=== PATIENT | female | born 1950 | race African-American/Black ===

== ENCOUNTER 2020-05-22 10:55 | Emergency (ER) | payer MEDICARE, OTHER ==
[~2020-05-22] VITALS: Ht 162.6 cm; Wt 84.4 kg
--- NOTE | 2020-05-22 10:52 | NUR ---
ED Nurse Note: Pt was brought in by [id number] from home d/t R chronic leg pain that has been going on for 3 days. pt is AOx4, calm and cooperative to care (+) facial grimace, per EMS pt has been dx with sciatica. Pt's VSS, om RA, afebrile on triage. Placed on bed, ERMD at bedside.
[2020-05-22 10:57] VITALS: BP 135/83
[2020-05-22] MEDS ORDERED: Methocarbamol 500mg tab ORAL ONE ×2 (11:00→11:02)
[2020-05-22] MEDS ORDERED: Ketorolac 30mg Inj IV ONE (11:00)
[2020-05-22] MEDS ORDERED: Ketorolac 30mg Inj ONE (11:01)
--- NOTE | 2020-05-22 11:17 | NUR ---
ED Nurse Note: pt was taken to ct
--- NOTE | 2020-05-22 11:27 | Emergency Room Report ---
History of Present Illness General Chief Complaint: General Complaint Source: Patient, Medical Record, EMS Present Illness HPI Patient is a 69-year-old female past medical history of sciatica who presents to the ER complaining of right lower back pain rating down her right leg. Patient denies any trauma. She states that the pain started again 3 days ago. Patient states that earlier in the year she had similar pain and was undergoing therapy but stopped due to the pandemic. Patient denies any trauma. Denies any fever. She denies any focal weakness. She denies any abdominal pain. She denies any difficulty walking. She denies any changes to her bowel or bladder habits. Patient states that she tried to take some Tylenol with mild relief. Patient was brought in from home by EMS. 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 Patient History Reviewed Nursing Documentation: PMH: Agreed; PSxH: Agreed Nursing Documentation-PMH Hx Hypertension: Yes Review of Systems All Other Systems: negative except mentioned in HPI Physical Exam Vital Signs Date Time Temp Pulse Resp B/P (MAP) Pulse Ox O2 Delivery O2 Flow Rate FiO2 05/22/20 10:45 97.3 87 18 135/83 (100) 96 Room Air Sp02 EP Interpretation: reviewed, normal General Appearance: no apparent distress, alert, GCS 15, non-toxic Head: normocephalic, atraumatic Eyes: bilateral eye normal inspection, bilateral eye PERRL ENT: hearing grossly normal, normal pharynx, no angioedema, normal voice Neck: full range of motion, supple/symm/no masses Respiratory: chest non-tender, lungs clear, normal breath sounds, speaking full sentences Cardiovascular #1: regular rate, rhythm, no edema Gastrointestinal: normal bowel sounds, non tender, soft, non-distended, no guarding, no rebound Rectal: deferred, other - No saddle anesthesia able to squeeze 5 cheeks Musculoskeletal: other - Right lower back pain with positive straight leg raise at approximately 30 degrees Neurologic: die cast engineer III-XII nml as tested, oriented x3 Psychiatric: no suicidal/homicidal ideation Skin: no rash Lymphatic: no adenopathy Medical Decision Making Diagnostic Impression: Primary Impression: Sciatica of right side ER Course I suspect the back pain that the patient is presenting with is non-emergent in etiology. Regarding the history, the patient denies gradual onset, trauma, fevers, night sweats, history of malignancy, pain worse at night, IVDU or refractory pain. Given these pertinent negatives in the history an emergent cause of the back pain is less likely. Also doubt cardiovascular cause of back pain such as aortic dissection or ruptured abdominal aortic aneurysm given patient with equal pulses in all 4 extremities with no diastolic murmur, or pulsatile abdominal mass. Epidural abscess considered unlikely given no fever or history of IVDU. The patient does not have history of malignancy so doubt metastasis to bone. Also doubt caudaequina syndrome since patient with no history of urinary/fecal incontinence or focal weakness or change in sensation. The patient was counseled that, though unlikely, the possibility of an emergent cause of back pain may still be present and that the patient should return immediately if symptoms persists or worsen. I believe the patient is stable for discharge to follow-up with their PMD for further workup and possible MRI. Laboratory Tests Test 05/22/20 12:10 Urine Color Pale yellow Urine Appearance Clear Urine pH 7 (4.5-8.0) Urine Specific [place] 1.015 (1.005-1.035) Urine Protein Negative (NEGATIVE) Urine Glucose (UA) Negative (NEGATIVE) Urine Ketones Negative (NEGATIVE) Urine Blood 2+ (NEGATIVE) H Urine Nitrite Negative (NEGATIVE) Urine Bilirubin Negative (NEGATIVE) Urine Urobilinogen Normal MG/DL (0.0-1.0) Urine Leukocyte Esterase Negative (NEGATIVE) Urine RBC 2-4 /HPF (0 - 2) H Urine WBC 0-2 /HPF (0 - 2) Urine Squamous Epithelial Cells Moderate /LPF (NONE/OCC) H Urine Amorphous Sediment Moderate /LPF (NONE) H Urine Bacteria Few /HPF (NONE) Last Vital Signs Date Time Temp Pulse Resp B/P (MAP) Pulse Ox O2 Delivery O2 Flow Rate FiO2 05/22/20 10:57 97.3 18 135/83 96 Room Air 05/22/20 10:57 87 Disposition: HOME, SELF-CARE Condition: Stable Scripts Methocarbamol* (ROBAXIN-750*) 750 Mg Tablet 500 MG PO TID, #21 TAB 0 Refills Prov: Marcelle Vazquez M.D. 05/22/20 Naproxen* (NAPROSYN*) 250 Mg Tablet 250 MG ORAL TID PRN for For Pain, #20 TAB 0 Refills Prov: Marcelle Vazquez M.D. 05/22/20 Additional Instructions: The patient was provided with discharge instructions, notified to follow-up with a primary care doctor and or specialist in the next 24-48 hours, and to return to the ED if they have worsening of their symptoms. Please note that this report is being documented using [employer] technology. This can lead to erroneous entry secondary to incorrect interpretation by the dictating instrument. Marcelle Vazquez M.D. May 22, 2020 11:27
--- NOTE | 2020-05-22 12:05 | Diagnostic Imaging Report ---
Indications: Status post fall, right-sided hip pain, chronic leg pain Technique: Spiral acquisitions obtained through the lumbar spine. Multiplanar reconstructions were generated. No IV contrast utilized. Total dose length product 515 mGycm. CTDIvol(s) 13 mGy. Dose reduction achieved using automated exposure control Comparison: none Findings: There is very slight anterior offset of L3 on L4 and L4 on L5. Bony alignment is otherwise normal. Vertebral body heights are preserved. The disc spaces are preserved. No acute fracture. No dislocation. There is unusual mixed osteolytic and osteosclerotic appearance of the entire L4 segment, with slight expansion of the vertebral body margins. There is bone on bone apposition of the L3-4 and L4-5 spinous processes. There is degenerative facet arthrosis at nearly every level. There are also multilevel degenerative proliferative changes. There is bilateral sacroiliac joint arthrosis. At C2-3, there is mild circumferential annular bulge which does not significant compromise spinal canal or neural foramina. At C3-4, there is circumferential annular bulge which results in mild narrowing of the spinal canal. The neural foramina are preserved. At C4-5, there is circumferential annular bulge as well as left paracentral and intraforaminal posterior broad-based disc protrusion. This may compromise left lateral recess and to a slight extent the left neural foramen. At L5-S1, there is circumferential annular bulge as well as broad-based posterior disc protrusion. This results in borderline narrowing of the spinal canal. There is mild narrowing of the bilateral neural foramina at this level. At the remaining disc levels, no significant disc bulge or protrusion or spinal stenosis. The included extra spinal soft tissues are remarkable for the presence of colonic diverticulosis. Impression: No acute bony trauma Degenerative changes, as described above Incidental finding of colonic diverticulosis The CT scanner at [facility] is accredited by the [employer] and the scans are performed using protocols designed to limit radiation exposure to as low as reasonably achievable to attain images of sufficient resolution adequate for diagnostic evaluation.
--- NOTE | 2020-05-22 12:23 | NUR ---
ED Nurse Note: assisted pt to urinate throught bedpan; obtained sample, sent to lab.
[2020-05-22 12:33] LABS: APPEARANCE,URINE CLEAR; BILIRUBIN, URINE NEGATIVE (NEGATIVE); COLOR,URINE PALE YELLOW; GLUCOSE, URINE (UA) NEGATIVE (NEGATIVE); KETONES,URINE NEGATIVE (NEGATIVE); LEUKOCYTE ESTERASE ,URINE NEGATIVE (NEGATIVE); NITRITE,URINE NEGATIVE (NEGATIVE); PH,URINE 7 (4.5-8.0); PROTEIN,URINE NEGATIVE (NEGATIVE); UROBILINOGEN,URINE NORMAL MG/DL (0.0-1.0)
[2020-05-22] MEDS ORDERED: ROBAXIN-750750 MG PO (13:16)
[2020-05-22] MEDS ORDERED: NAPROXEN250 MG ORAL (13:16)
[2020-05-22 14:02] VITALS: BP 140/86
--- NOTE | 2020-05-22 14:02 | NUR ---
ER DISCHARGE NOTE: Patient is cleared to be discharged per ERMD, pt is aox4, on room air, with stable vital signs. pt was given dc and prescription instructions, pt was able to verbalize understanding, pt id band removed. pt is able to ambulate with steady gait. pt took all belongings.
== END 2020-05-22 14:02 | disposition home or self-care (01) ==
LOC: EDBD 10:55 → EMR 13:10
DX: M54.31 Sciatica, right side (principal); I10 Essential (primary) hypertension; Z88.0 Allergy status to penicillin; Z88.8 Allergy status to other drugs, medicaments and biological substances
CPT/HCPCS: 72131; 81003; 96374; 99284; J1885